=== PATIENT | female | born 1990 | race Caucasian/White ===

== ENCOUNTER 2022-09-21 15:04 | Emergency (ER) | payer BC ==
[~2022-09-21] VITALS: Ht 170.2 cm; Wt 64.0 kg
--- NOTE | 2022-09-21 16:20 | NUR ---
C/O RIGHT SHOULDER AND BACK PAIN S/P GLF S DAYS AGO
[2022-09-21] MEDS ORDERED: LIDOCAINE 5% (PATCH) 1 EA PATCH TP SCH (18:30)
[2022-09-21] MEDS ORDERED: KETOROLAC TROMETHAMINE INJ 60 MG/2 ML VIAL IM ONE (18:30)
[2022-09-21] MEDS ORDERED: LIDOCAINE 5% (PATCH) 1 EA PATCH TP ONE (18:42)
[2022-09-21] MEDS ORDERED: KETOROLAC TROMETHAMINE INJ 30 MG/ML VIAL ONE (18:43)
--- NOTE | 2022-09-21 18:50 | NUR ---
WAIVER SIGNED BY PATIENT. LMP 09/25/22
[2022-09-21] MEDS ORDERED: LIDO30AD10 TP (19:20)
[2022-09-21] MEDS ORDERED: IBUP-1953 PO (19:20)
[2022-09-21 20:03] VITALS: BP 114/71
== END 2022-09-21 20:05 | disposition home or self-care (01) ==
LOC: ER 15:06
DX: M25.511 Pain in right shoulder (principal); R07.81 Pleurodynia; J45.909 Unspecified asthma, uncomplicated; Z60.2 Problems related to living alone; Z79.899 Other long term (current) drug therapy
CPT/HCPCS: 99284; 96372; 71100; 73030; J1885